=== PATIENT | male | born 1990 | race Caucasian/White ===

== ENCOUNTER 2021-06-14 12:11 | Emergency (ER) | payer OTHER ==
[~2021-06-14] VITALS: Ht 190.5 cm; Wt 109.0 kg
[2021-06-14 12:28] VITALS: BP 115/79
[2021-06-14] MEDS ORDERED: AMOX-424 MT (12:41)
[2021-06-14] MEDS ORDERED: IBUP-2030 MT (12:41)
== END 2021-06-14 13:05 | disposition home or self-care (01) ==
LOC: ER 13:02
DX: K04.7 Periapical abscess without sinus (principal)
CPT/HCPCS: 99282